=== PATIENT | female | born 2000 | race African-American/Black ===

== ENCOUNTER 2021-05-14 12:05 | Emergency (ER) | payer OTHER ==
[~2021-05-14] VITALS: Ht 165.1 cm; Wt 55.3 kg
[2021-05-14 12:11] VITALS: BP 138/86
[2021-05-14] MEDS ORDERED: AMOXIL 875 MG875 M1 PO (12:31)
[2021-05-14] MEDS ORDERED: LIDOCAINE VISC100 ML SWISH&SPIT (12:31)
[2021-05-14] MEDS ORDERED: TRAMADOL 50 MG50 MG PO (12:31)
== END 2021-05-14 12:36 | disposition home or self-care (01) ==
LOC: ER 12:05
DX: K08.89 Other specified disorders of teeth and supporting structures (principal)